=== PATIENT | female | born 2000 | race Hispanic/Latino ===

== ENCOUNTER 2023-01-24 11:02 | Emergency (ER) | payer MEDICAID, SELFPAY ==
[2023-01-24] MEDS ORDERED: Dexamethasone 10 MG/ML VIAL ONE (11:36)
[2023-01-24] MEDS ORDERED: Ibuprofen 200 MG TAB ONE (11:36)
== END 2023-01-24 12:06 | disposition home or self-care (01) ==
LOC: ERS 11:02
DX: J03.90 Acute tonsillitis, unspecified (principal)
CPT/HCPCS: 87081; 87430; 99283; J1100

== ENCOUNTER 2024-03-24 00:15 | Emergency (ER) | payer SELFPAY ==
[2024-03-24] MEDS ORDERED: Ibuprofen 200 MG TAB ONE (01:53)
[2024-03-24 03:47] LABS: #Basophils 0.05 10x3/uL (0.0-0.2); %Basophils 0.6 % (0.0-1.0); %Eosinophils 2.3 % (0.0-10.0); %Lymphocytes 43.6 % (21.0-51.0); Hematocrit 40.8 % (36.0-47.0); Hemoglobin 14.1 g/dL (12.0-16.0); Mean Corpuscular HGB CONC 34.6 g/dL (32.0-36.0); Mean Corpuscular Hemoglobin 29.9 pg (27.0-31.0); Mean Corpuscular Volume 86.4 fL (78.0-98.0); Mean Platelet Volume 10.6 fL (7.4-10.4); Platelet Count 254 10x3/uL (130-400); RBC Distribution Width 12.9 % (11.5-14.5); Red Blood Cell (RBC) Count 4.72 mill/uL (4.20-5.40)
[2024-03-24 04:22] LABS: ALT (SGPT) 39 U/L (Less than 34); AST (SGOT) 42 U/L (11-34); Albumin 4.3 g/dL (3.1-4.5); Alkaline Phosphatase 90 U/L (40-110); Anion Gap 14 mmol/L (10-20); BUN (Urea Nitrogen) 11 mg/dL (7.0-18.7); Bilirubin, Total 1.3 mg/dL (0.3-1.2); CK (CPK) 392 U/L (29-168); Calc. Creatinine Clearance 0 mL/min (70-130); Calcium 9.8 mg/dL (7.8-10.44); Carbon Dioxide 23 mmol/L (22-29); Chloride 105 mmol/L (98-107); Estimated GFR 127; Globulin 3.8 g/dL (2.4-3.5); Glucose 95 mg/dL (70-105); Potassium 4.2 mmol/L (3.5-5.1); Protein, Total 8.1 g/dL (6.0-8.3); Sodium 138 mmol/L (136-145)
== END 2024-03-24 04:37 | disposition home or self-care (01) ==
LOC: ERS 00:15
DX: F15.10 Other stimulant abuse, uncomplicated (principal)
CPT/HCPCS: 80053; 82550; 85025; 99283